=== PATIENT | male | born 1970 | race Caucasian/White ===

== ENCOUNTER → 2017-04-25 | Outpatient (CLI) | payer BC ==
[~2017-04-25] MED LIST: ALEVE 220MG220 MG PO; CIPRO 500MG TA500 MG PO; MULTIPLE VITAMI1 CAP PO; NEURONTIN300 MG/CAP PO; NORCO 325 MG-7.1 TAB PO; PRILOSEC 20MG20 MG PO; TESTOSTERONE SUPP; ZYRTEC 10MG10 MG PO
== END ==
LOC: COL.VAS 07:45
DX: M79.89 Other specified soft tissue disorders (principal); M25.471 Effusion, right ankle; Z96.651 Presence of right artificial knee joint

== ENCOUNTER 2019-01-03 15:25 | Emergency (ER) | payer BC ==
[~2019-01-03] VITALS: Ht 190.5 cm; Wt 114.5 kg
[2019-01-03 15:29] VITALS: TEMP 97.8
[2019-01-03 16:07] LABS: BASO # 0.1 (0.0-0.2); BASO % 0.6 % (0.0-2.0); EOS # 0.9 (0.0-0.7); EOS % 7.6 % (0-4.0); LYMPH # 3.5 (1.2-3.4); LYMPH % 30.1 % (20.0-51.0); MEAN CELL VOLUME 91 fl (80.0-100.0); MEAN CORPUSCULAR HGB CONC 35 g/dl (33.0-37.0); MEAN PLATELET VOLUME 10.4 fl (7.4-10.4); MONO % 8.8 % (1.7-9.3); PLATELET COUNT 214 K/mm3 (130-400); RED BLOOD COUNT 5.72 M/mm3 (4.20-5.60); REDCELL DISTRIBUTION WIDTH-CV 13.8 % (11.5-14.5)
[2019-01-03 16:09] LABS: HEMATOCRIT 52.3 % (42.0-52.0); HEMOGLOBIN 18.5 g/dl (13.5-18.0); MEAN CORPUSCULAR HEMOGLOBIN 32 pg (27.0-31.0)
[2019-01-03 16:18] LABS: ALBUMIN 4.5 gm/dL (3.5-5.0); BILIRUBIN,TOTAL 0.4 mg/dL (0.0-1.0); CALCIUM 9.4 mg/dL (8.4-10.2); CREATININE, serum 0.92 (0.66-1.25); POTASSIUM 3.9 mmol/L (3.4-5.0); TOTAL PROTEIN 7.9 gm/dL (6.4-8.2)
[2019-01-03] MEDS ORDERED: INDOCIN 25MG CA25 MG PO (17:57)
[2019-01-03 18:46] VITALS: BP 142/94
[2019-01-03 18:56] VITALS: PULSE 71
== END 2019-01-03 19:00 | disposition short-term general hospital (02) ==
LOC: COL.ER 15:25
PROVIDERS: Emergency Medicine
DX: L03.113 Cellulitis of right upper limb (principal); G62.9 Polyneuropathy, unspecified; F17.210 Nicotine dependence, cigarettes, uncomplicated; Z90.89 Acquired absence of other organs
CPT/HCPCS: J3370; J7040; J7050

== ENCOUNTER 2019-11-15 15:45 | Outpatient (RCR) | payer BC ==
[~2019-11-15 15:45] MED LIST changes: +INDOCIN 25MG CA25 MG PO
== END 2020-01-24 | disposition home or self-care (01) ==
LOC: MKS.ESL.PT
DX: M54.5 Low back pain (principal); G89.29 Other chronic pain

== ENCOUNTER → 2020-01-26 | Outpatient (CLI) | payer BC, OTHER | LOC: ZCOL.LAB 16:14 | DX: U07.1 COVID-19 (principal) ==

== ENCOUNTER 2020-06-12 18:22 | Observation (INO) | payer OTHER ==
[~2020-06-12] VITALS: Ht 190.7 cm; Wt 118.2 kg
[2020-06-12] MEDS ORDERED: NEURONTIN800 MG/TAB PO (18:44)
[2020-06-12] MEDS ORDERED: LYRICA 75MG CAP75 MG PO (18:46)
[2020-06-12] MEDS ORDERED: TRELEGY ELLIPT1 EACH IH (18:50)
[2020-06-12] MEDS ORDERED: MELOXICAM (18:50)
[2020-06-12 18:53] LABS: ALANINE AMINOTRANSFERASE 34 U/L (4-49); ALBUMIN 4.5 gm/dL (3.5-5.0); ALKALINE PHOSPHATASE 68 U/L (50-136); ANION GAP 7 mmol/L (7-16); AST,SGOT 32 U/L (15-37); BILIRUBIN,TOTAL 0.9 mg/dL (0.0-1.0); BLOOD UREA NITROGEN 8 mg/dL (9-20); CALCIUM 9.7 mg/dL (8.4-10.2); CARBON DIOXIDE 31 mmol/L (22-30); CHLORIDE 97 mmol/L (98-107); CREATININE, serum 0.97 (0.66-1.25); GLUCOSE 96 mg/dL (74-106); LIPASE 44 U/L (23-300); POTASSIUM 4.2 mmol/L (3.4-5.0); SODIUM 136 mmol/L (137-145); TOTAL PROTEIN 7.7 gm/dL (6.4-8.2)
[2020-06-12 18:54] LABS: BASO # 0.1 (0.0-0.2); BASO % 0.7 % (0.0-2.0); EOS # 0.3 (0.0-0.7); EOS % 2.9 % (0-4.0); GRAN # 4.2 (1.4-6.5); GRAN % 48.1 % (42.2-75.2); LYMPH # 3.3 (1.2-3.4); LYMPH % 37.7 % (20.0-51.0); MEAN CELL VOLUME 93 fl (80.0-100.0); MEAN CORPUSCULAR HGB CONC 35 g/dl (33.0-37.0); MONO # 0.9 (0.1-0.6); MONO % 10.1 % (1.7-9.3); PLATELET COUNT 169 K/mm3 (130-400); RED BLOOD COUNT 5.61 M/mm3 (4.20-5.60); REDCELL DISTRIBUTION WIDTH-CV 13.2 % (11.5-14.5)
[2020-06-12 18:57] LABS: HEMATOCRIT 52.1 % (42.0-52.0); HEMOGLOBIN 18.2 g/dl (13.5-18.0); MEAN CORPUSCULAR HEMOGLOBIN 32 pg (27.0-31.0)
[2020-06-12 19:05] LABS: PROTHROMBIN TIME 11.4 SECONDS (9.7-12.8)
[2020-06-12 19:06] LABS: TROPONIN-I < 0.012 ng/mL (0.000-0.035)
--- NOTE | 2020-06-12 21:35 | NUR ---
To room 347 via wheelchair. Admission assessment complete. Oriented to room and policy. VS stable. Denies pain currently-states the morphine given in ED helped the chest pain. No nausea/shortness of breath. IV to right AC with NS@125ml/hr-no s/s of infiltration noted. Plan of care discussed for this shift to include monitoring VS/reporting any concerns/NPO@MN. Verbalizes understanding. Denies questions/concerns. call light in reach. Will monitor.
[2020-06-12 21:37] VITALS: BP 154/91; PULSE 52; TEMP 97.7
[2020-06-12 21:40] LABS: CHOLESTEROL 196 mg/dL (120-200); CHOLESTEROL RISK RATIO 6.3; HDL CHOLESTEROL 31 mg/dL; LDL CHOLESTEROL 135 mg/dL; TRIGLYCERIDE 150 mg/dL
[2020-06-12 21:54] LABS: TROPONIN-I 3 HR POST INITIAL < 0.012 ng/mL (0.000-0.034)
[2020-06-12] MEDS ORDERED: DESYREL 100MG100 MG PO (22:07)
[2020-06-12 22:21] VITALS: BP 162/89; PULSE 60
--- NOTE | 2020-06-12 22:30 | NUR ---
Called with c/o pain to knees and back. Rating pain 8/10 on pain scale-described as constant ache-norco given per order. Will continue to monitor.
[2020-06-12 22:36] VITALS: BP 160/93; PULSE 68
[2020-06-12 23:06] VITALS: BP 158/84; PULSE 61
[2020-06-12 23:45] VITALS: BP 165/84; PULSE 58; TEMP 97.6
[2020-06-13] VITALS (23 sets, daily range): BP systolic 142–179; BP diastolic 75–110; PULSE 54–85; TEMP 97.6–98.3
--- NOTE | 2020-06-13 05:00 | NUR ---
Rested off and on this shift. VS remained stable. Denied chest pain/shortness of breath/nausea. Received norco x1 for back/leg/shoulder pain. Has been NPO since 0000 for allegra scan. Tele reports SR. Denies current needs. Call light in reach. Will monitor.
[2020-06-13 06:40] LABS: BASO # 0.1 (0.0-0.2); BASO % 0.7 % (0.0-2.0); EOS # 0.3 (0.0-0.7); EOS % 3.3 % (0-4.0); GRAN # 3.6 (1.4-6.5); GRAN % 46.3 % (42.2-75.2); HEMATOCRIT 48.6 % (42.0-52.0); LYMPH # 3.1 (1.2-3.4); LYMPH % 40.6 % (20.0-51.0); MEAN CELL VOLUME 94 fl (80.0-100.0); MEAN CORPUSCULAR HEMOGLOBIN 33 pg (27.0-31.0); MEAN CORPUSCULAR HGB CONC 35 g/dl (33.0-37.0); MEAN PLATELET VOLUME 10.4 fl (7.4-10.4); MONO # 0.7 (0.1-0.6); MONO % 8.8 % (1.7-9.3); PLATELET COUNT 160 K/mm3 (130-400); RED BLOOD COUNT 5.15 M/mm3 (4.20-5.60); REDCELL DISTRIBUTION WIDTH-CV 13.3 % (11.5-14.5)
[2020-06-13 06:53] LABS: ALANINE AMINOTRANSFERASE 29 U/L (4-49); ALBUMIN 3.7 gm/dL (3.5-5.0); ALKALINE PHOSPHATASE 60 U/L (50-136); ANION GAP 6 mmol/L (7-16); AST,SGOT 31 U/L (15-37); BLOOD UREA NITROGEN 7 mg/dL (9-20); CALCIUM 8.9 mg/dL (8.4-10.2); CARBON DIOXIDE 29 mmol/L (22-30); CHLORIDE 103 mmol/L (98-107); CREATININE, serum 0.88 (0.66-1.25); GLUCOSE 89 mg/dL (74-106); POTASSIUM 3.8 mmol/L (3.4-5.0); SODIUM 137 mmol/L (137-145); TOTAL PROTEIN 6.3 gm/dL (6.4-8.2)
[2020-06-13 07:03] LABS: TROPONIN-I < 0.012 ng/mL (0.000-0.035)
--- NOTE | 2020-06-13 07:03 | NUR ---
Lying in bed on left side with eyes closed. Opens eyes when name called out. Alert and oriented x4. Denies pain at this time. Is ready to have echo and Lexiscan done. Denies needs at this time.
--- NOTE | 2020-06-13 07:48 | NUR ---
Patient requests [place] for chronic pain. Administer as prescribed. Patient called, provided update and patient also says that he will call her. Denies needs at this time.
--- NOTE | 2020-06-13 08:20 | NUR ---
Patient to [facility] via wheel chair at this time.
--- NOTE | 2020-06-13 10:03 | NUR ---
Patient back to room from [facility] via wheel chair.
--- NOTE | 2020-06-13 10:10 | NUR ---
Patient lying in bed with eyes open. Says that he is feeling good and that his Lexiscan went well. Explain that Laura, AUTOMOTIVE [employer]S PERSON student with the hospitalist team, is going to come see him and after that we would see about getting food ordered. Patient verbalizes understanding. Denies additional needs.
--- NOTE | 2020-06-13 10:39 | NUR ---
Television Writer met with the patient to complete intake. The patient lives in [place] with his Christy, their daughter, and [id number]. The patient uses a CPAP and receives supplies from [facility]. The patient is independent. The patient's PCP is Dr. Ramirez and patient receives medications from [facility] pharmacy. The patient does not have advanced directives. He was not interested in DPOA-HC form. The patient plans to return home and Christy will provide transportation. There are no additional needs at this time.
--- NOTE | 2020-06-13 11:16 | NUR ---
First visit from the professor sculpture. No needs right now.
--- NOTE | 2020-06-13 12:17 | NUR ---
Review consent for heart cath with the patient. Denies questions and signs consent, will place on chart. BP elevated. Patient says that he is very stressed out with getting all of this news. Reassurance provided to the patient. Will give the patient a couple minutes and will recheck BP. Patient sitting up in chair. Denies additional needs at this time.
--- NOTE | 2020-06-13 12:26 | NUR ---
BP coming down. Patient says that he is feeling a little bit better and not as stressed. Patient says that it was just getting that news initially made him nervous and stressed out. Reassurance provided. Patient remains sitting up in chair. Denies needs at this time.
--- NOTE | 2020-06-13 13:26 | NUR ---
Patient to dental laboratory supervisor by CONCHA Stringer, at this time via bed.
--- NOTE | 2020-06-13 13:46 | NUR ---
SEE MERGE DOCUMENTATION FOR MEDICATION ADMINISTRATION TIMES AND INTRA/POST PROCEDURE SEDATION ASSESSMENTS. RIGHT HAND BARBEAU TEST POSITIVE.
--- NOTE | 2020-06-13 14:32 | NUR ---
Patient to room from coreroom foundry laborer via bed. Alert and oriented x4 but sleepy. Encourage patient to rest. Patient says that he is hungry and would like food. Explain that we will check the orders first. TR band to right radial artery. No bleeding or hematoma seen. CMS intact. Patient denies needs at this time.
--- NOTE | 2020-06-13 16:37 | NUR ---
Lying in bed with eyes open watching TV. Was able to eat. Rates pain especially in back 7/10, chronic pain for patient, and he would like his pain medication. Will administer as prescribed. Patient BP also elevated, will administer apresoline as prescribed. Discuss with the patient Fish Oil. Patient asks if he will be able to go home. Explain that this is up to the providers but with his BP being elevated they may want to monitor overnight. Patient verbalizes understanding. Will update providers after administering medication.
--- NOTE | 2020-06-13 17:03 | NUR ---
Patient resting in bed with eyes closed. Opens eyes when name called out. BP 156/85. Released 5mL of air from TR band. Patient denies needs.
--- NOTE | 2020-06-13 17:51 | NUR ---
Patient sitting up on edge of bed. Continues to have some pain all over from being uncomfortable in the bed but it is better than it was. Released 5mL of air from TR band to right radial artery. Site without hematoma or bleeding. Patient will continue to monitor site for bleeding. Patient ambulating in halls with DIANNE Segura.
--- NOTE | 2020-06-13 18:23 | NUR ---
Patient sitting up in chair. Remaining 5mL removed from TR band to right wrist. NO active bleeding or hematoma noted. Apply two 2x2's to site and reinforce with coban. Patient instructed not to use right hand and if site starts to actively bleed to apply pressure and contact staff immediately. Patient has ordered dinner and is waiting on it to arrive. Denies additional needs at this time.
--- NOTE | 2020-06-13 20:00 | NUR ---
Report recieved, assumed care for hourly shift. Assessment complete. VS stable. A&Ox3. Denies pain/nausea/shortness of breath. Dressing to right radial cath site CDI. Right AC INT flushes without difficulty. Plan of care discussed for this shift to include HS meds/pain meds/calling for questions/concerns. Verbalizes understanding. Call light in reach. Will monitor.
--- NOTE | 2020-06-14 | NUR ---
Resting eyes closed. No s/s of pain noted.
[2020-06-14 00:22] VITALS: BP 154/75; PULSE 71; TEMP 97.8
[2020-06-14 02:26] VITALS: BP 158/100; PULSE 70; TEMP 97.6
--- NOTE | 2020-06-14 02:30 | NUR ---
Called with c/o pain-states he has a terrible headache that has made him nauseas. Denies chest pain/shortness of breath. VS checked-blood pressure is elevated 158/100-but still below hydralazine parameters. GIven zofran for nausea and norco for headache rated 7/10 on pain scale. Discussed calling if increase in headache/emesis. Verbalizes understanding. Call light in reach. Will monitor.
--- NOTE | 2020-06-14 03:45 | NUR ---
Resting eyes closed-audible snore. NO s/s of pain noted.
[2020-06-14 04:00] VITALS: BP 165/83; PULSE 66; TEMP 97.6
--- NOTE | 2020-06-14 05:10 | NUR ---
Rested well earlier in shift. C/O headache and nausea @0230. [place]/zofran given with good results. Continued to have slightly elevated blood pressures. Denies chest pain/shortness of breath. States she is ready to go home. Denies current needs. Call light in reach. Will monitor.
--- NOTE | 2020-06-14 06:55 | NUR ---
Patient lying in bed with eyes open. Alert and oriented x4. Rates pain 6/10, all over, chronic pain, would like pain meds when available. Denies any chest pain. Hopes to go home today. Denies additional needs at this time.
[2020-06-14 07:31] VITALS: BP 157/88; PULSE 71; TEMP 97.6
--- NOTE | 2020-06-14 08:10 | NUR ---
[place] administered as prescribed. Patient sitting up in chair. Denies further needs.
[2020-06-14] MEDS ORDERED: LIPITOR 40MG TA40 MG PO (08:35)
[2020-06-14] MEDS ORDERED: ASPIRIN 81M81 MG/TA2 PO (08:36)
[2020-06-14] MEDS ORDERED: EPA FISH OIL1 SGL PO (08:36)
[2020-06-14] MEDS ORDERED: NORVASC 10MG10 MG PO (08:36)
--- NOTE | 2020-06-14 09:24 | NUR ---
Review all discharge instructions with the patient. Denies questions and verbalizes understanding. Signs discharge paperwork and discharge packet provided to the patient. Patient will call staff when his is at ER entrance to pick him up.
--- NOTE | 2020-06-14 09:30 | NUR ---
Patient calls and says that his is at ER entrance to pick him up. Patient leaves ambulatory with all belongings and help from DIANNE Lauren.
--- NOTE | 2020-06-14 10:07 | NUR ---
Initial visit; Patient thanked Worm Sorter for looking in on him and offering God's blessings.
== END 2020-06-14 09:30 | disposition home or self-care (01) ==
LOC: COL.ER 18:22 → SURG 19:26 → EDBEDREQ 20:35 → SURG 06-14 09:30
PROVIDERS: Nurse Practitioner Primary Care; Student in an Organized Health Care Education/Training Program; ADMIT Student in an Organized Health Care Education/Training Program
DX: I25.110 Atherosclerotic heart disease of native coronary artery with unstable angina pectoris (principal); R94.39 Abnormal result of other cardiovascular function study; I10 Essential (primary) hypertension; I16.0 Hypertensive urgency; G62.9 Polyneuropathy, unspecified; K21.9 Gastro-esophageal reflux disease without esophagitis; F17.210 Nicotine dependence, cigarettes, uncomplicated; J44.9 Chronic obstructive pulmonary disease, unspecified; Z86.16 Personal history of COVID-19; Z96.653 Presence of artificial knee joint, bilateral; M19.90 Unspecified osteoarthritis, unspecified site; I08.1 Rheumatic disorders of both mitral and tricuspid valves
CPT/HCPCS: 99223-AI; 99233-AI; 99239; A9500; J0360; J1644; J1650; J2250; J2270; J2405; J2785; J3010; J7030; Q9967